=== PATIENT | female | born 1970 | race Caucasian/White ===

== ENCOUNTER → 2018-12-04 23:53 | Emergency (ER) | payer BC, OTHER ==
[~2018-12-04 23:53] MED LIST: Tetan/Diph/Pertus SYR(Tdap)* 0.5 ML SYR(BOOSTRIX) use SYR IM ONE
--- NOTE | 2018-12-05 00:17 | ED ---
Psychiatric Complaint - HPI Summary HPI Summary: Pt is a 48 y/o female brought in by police on a 941 who presents to the ED c/o depression. She states her boyfriend left her 5 days ago, and shes been upset ever since. Pt cut her thigh 4 days ago with a razor blade superficially. She has since been cleaning them out and applying Neosporin. Pt has not harmed herself since. She states she has been talking to her mother a lot, which has been helping her. Pt feels worse when she is alone. She was at work today and somebody called 911, and she was brought to the ED. Pt denies any SI or HI. Pt feels PMHx anxiety and depression. She does not have a therapist. - History Of Current Complaint Chief Complaint: EDMentalHealth Time Seen by Provider: 12/05/18 00:05 Hx Obtained From: Patient Onset/Duration: Gradual Onset, Lasting Days - 5 Timing: Constant Character: Depressed Aggravating Factor(s): Recent Stress - breakup, Other - being alone Alleviating Factor(s): Nothing Associated Signs And Symptoms: Positive: Negative Related History: Negative For: Prior Psychiatric Issues Has Suicidal: Denies: Thoughts Has Homicidal: Denies: Thoughts - Allergies/Home Medications Allergies/Adverse Reactions: Allergies Allergy/AdvReac Type Severity Reaction Status Date / Time morphine Allergy Anaphylatic Verified 12/05/18 00:00 Shock Penicillins Allergy Hives Verified 12/05/18 00:00 PMH/Surg Hx/FS Hx/Imm Hx Endocrine/Hematology History: Reports: Hx Blood Disorders - Mihai Isabel's Cardiovascular History: Reports: Other Cardiovascular Problems/Disorders - rapid weight loss induced tachycardiac - tx'd w/ beta chris Respiratory History: Reports: Hx Asthma History: Reports: Other Problems/Disorders - endometriosis Musculoskeletal History: Reports: Hx Back Problems - cervical, lumbar and sacral surgical repairs - plates, cages - lumbar spine Neurological History: Reports: Hx Peripheral Neuropathy - feet - Surgical History Surgery Procedure, Year, and Place: cervical and lumbar with cage in lumbar Infectious Disease History: No Infectious Disease History: Denies: Hx of Known/Suspected MRSA, Traveled Outside the [place] in Last 30 Days - Family History Known Family History: Positive: Hypertension, Diabetes, Other - [place] - Social History Alcohol Use: None Hx Substance Use: No Substance Use Type: Reports: None Hx Tobacco Use: No Smoking Status (MU): Never Smoked Tobacco Review of Systems Positive: Other - self-inflicted wounds on thigh Positive: Other - NEGATIVE: SI, HI All Other Systems Reviewed And Are Negative: Yes Physical Exam - Summary Physical Exam Summary: Appearance: Well appearing, no pain distress Skin: warm, dry, reflects adequate perfusion, multiple horizontal self- inflicted abrasions to left thigh Head/face: normal Eyes: EOMI, MAXIM ENT: mucous membranes moist Neck: supple, non-tender Respiratory: CTA, breath sounds present Cardiovascular: RRR, pulses symmetrical Abdomen: non-tender, soft Bowel Sounds: present Musculoskeletal: normal, strength/ROM intact Neuro: normal, sensory motor intact, A&Ox3 Psych: no SI, no HI, tearful Triage Information Reviewed: Yes Vital Signs On Initial Exam: Initial Vitals Temp Pulse Resp BP Pulse Ox 97.3 F 68 16 160/89 99 12/04/18 23:55 12/04/18 23:55 12/04/18 23:55 12/04/18 23:55 12/04/18 23:55 Vital Signs Reviewed: Yes Diagnostics - Vital Signs Vital Signs Temp Pulse Resp BP Pulse Ox 12/04/18 23:55 97.3 F 68 16 160/89 99 - Laboratory Lab Statement: Any lab studies that have been ordered have been reviewed, and results considered in the medical decision making process. Re-Evaluation - Re-Evaluation First Eval Re-Evaluation Time: 00:21 Change: Unchanged Comment: Pt is medically cleared for a MHE. Course/Dx - Course Course Of Treatment: Nurse's notes reviewed. Patient was medically cleared for mental health evaluation. Following mental health evaluation she was cleared by the psychiatrist for discharge home with outpatient follow-up. Tetanus shot was given for herself injury abrasions. - Differential Dx/Clinical Impression Provider Diagnosis: Depression, Adjustment disorder, Self-inflicted injury - Physician Notifications Discussed Care Of Patient With: Rodriguez Reed Time Discussed With Above Provider: 01:50 Instructed by Provider To: Other - Pt is discharged. Discharge - Sign-Out/Discharge Documenting (check all that apply): Patient Departure - Discharge - Discharge Plan Condition: Improved Disposition: HOME Patient Education Materials: Depression (DC), Anxiety (ED) Referrals: Darlin MCCOY,Matt Lazar [Primary Care Provider] - - Billing Disposition and Condition Condition: IMPROVED Disposition: Home - Attestation Statements Document Initiated by Scribe: Yes Documenting Scribe: Kiki Burton Provider For Whom Carlitos is Documenting (Include Credential): Renato Harvey MD Scribe Attestation: Kiki Clancy, scribed for Renato Harvey MD on 12/05/18 at 0335. Scribe Documentation Reviewed: Yes Provider Attestation: The documentation as recorded by the Kiki whipple accurately reflects the service I personally performed and the decisions made by me, Renato Harvey MD Status of Scribe Document: Viewed
[2018-12-05 02:19] VITALS: BP 0/0
== END | disposition home or self-care (01) ==
LOC: ED 23:53
DX: F43.21 Adjustment disorder with depressed mood (principal); S70.312A Abrasion, left thigh, initial encounter; X78.8XXA Intentional self-harm by other sharp object, initial encounter; Y92.9 Unspecified place or not applicable; Z23 Encounter for immunization; Z88.5 Allergy status to narcotic agent; Z88.0 Allergy status to penicillin
CPT/HCPCS: 90471; 90715; 99284